=== PATIENT | female | born 1995 | race African-American/Black ===

== ENCOUNTER 2018-01-31 00:14 | Emergency (ER) | payer OTHER ==
[~2018-01-31] VITALS: Ht 165.1 cm; Wt 127.3 kg
[2018-01-31 00:28] VITALS: BP 141/74; PULSE 77; RESP 18; TEMP 98.4; O2SAT 99
== END 2018-01-31 04:31 | disposition left against medical advice (07) ==
LOC: NED 00:14
DX: Z04.1 Encounter for examination and observation following transport accident (principal)
CPT/HCPCS: 99281